=== PATIENT | female | born 1965 | race African-American/Black ===

== ENCOUNTER → 2020-07-19 02:42 | Outpatient (CLI) | payer BC, SELFPAY ==
[2020-07-19 20:23] LABS: SARS-CoV-2 RNA PCR Negative
== END ==
PROVIDERS: Visit Provider Orthopaedic Surgery
DX: Z01.812 Encounter for preprocedural laboratory examination (principal); Z20.822 Contact with and (suspected) exposure to COVID-19
CPT/HCPCS: C9803; U0003; U0005

== ENCOUNTER 2020-07-23 01:35 | Day surgery (SDC) | payer BC, SELFPAY ==
[2020-07-15 13:18] VITALS: BMI 37.7
--- NOTE | 2020-07-21 14:39 | PM.IMHP ---
H&P: HPI History of Present Illness Date/Time: 07/21/20 14:39 the patient is a 55-year-old female who presents with left knee pain. The patient has a chronic ongoing history of pain localized left knee particularly medially. The patient reports locking and catching medially any twisting or turning squatting kneeling causes significant medial-sided knee pain. Patient has had multiple previous twisting injuries by her report and now her pain is persistent nature. The patient was treated with cortisone therapy and anti-inflammatories without significant relief. An MRI scan was then performed. An MRI scan shows cruciate and collateral ligaments to be intact. There is a tear of the inner margin of the medial meniscus posterior horn the lateral meniscus is intact. 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 At this point the patient has failed conservative measures. Patient is noted to be 55 not really interested in a total knee arthroplasty at this time. Her main complaints are mechanical symptoms and she is aware that knee arthroscopy could improve her symptoms however may not give her full relief from her knee pain from knee arthroscopy. Patient would like to try a more conservative approach the knee arthroplasty at this time due to her young age. She has discussed risks benefits limitations and alternatives to knee arthroscopy in detail with Dr. Hsu and she would like to proceed. Chief Complaint: Left knee pain, medial meniscal tear Review of Systems Review of Systems: All systems reviewed & are unremarkable except as noted in HPI and below [facility] Social History Social History Smoking packs per day: 0.5 Smoking cigarettes per day: 10.0 Years smoked: 20 Smoking pack-years: 10.00 Smoking status: Former smoker Smoking end date: 04/25/04 Alcohol intake: never Substance use: never Substance use type: does not use Spiritual care concerns: No Meds Home Medications and Allergies Home Medications Medication Instructions Recorded Confirmed Type albuterol 90 mcg INHALATION Q6H PRN 07/15/20 07/15/20 History ergocalciferol (vitamin D2) 1,250 mcg PO WEEKLY 07/15/20 07/15/20 History hydrocodone-ibuprofen 1 tablet PO Q4H PRN 07/15/20 07/15/20 History hydroxyurea 500 mg PO DAILY 07/15/20 07/15/20 History pantoprazole 40 mg PO DAILY 07/15/20 07/15/20 History tobramycin-dexamethasone 1 drp EACH EYE DAILY 07/15/20 07/15/20 History Allergies Allergy/AdvReac Type Severity Reaction Status Date / Time No Known Allergies Allergy Verified 07/15/20 13:15 Exam Narrative: Exam Narrative: The patient is noted be a well-developed well-nourished female no acute distress. The patient is alert and oriented x3. Normal mood and affect. Hearing and vision intact. HEENT exam within normal limits. Heart regular rate rhythm. Lungs clear auscultation. Abdomen benign. Extremities showed the patient's left knee to be painful with manipulation range of motion. She has tenderness on the medial joint line with a positive Leroy exam negative Grace knee joint is otherwise stable strength is 5 5. she does have mild crepitation through the arc of motion mild to moderate effusion is noted. Hips move well with negative Stinchfield negative Radha. Neurovascularly she is intact. Skin is intact. Central nervous system exam within normal limits. Assessment and Plan Additional Plan By MRI history and exam the patient is noted to have a medial meniscal tear left knee with above associated findings. The patient is aware she has pre-existing osteoarthritis and may not get full relief for her knee pain from knee arthrosco
--- NOTE | 2020-07-22 15:41 | WPDANESEPPF ---
Anes - Initial Pre Proc Eval Procedure: Operation Date: 07/23/20 09:30 Proposed Procedures p Left Knee Arthroscopy, Partial Medial Meniscectomy, Proceed As Indicated - Nito Hsu MD Date/Time: 07/22/20 15:41 Surgeon: Nito Hsu MD Pre Op Diagnosis: Medial Meniscus Tear Left Knee Patient Data Age: 55 Gender: F Height: 1.6 m Weight: 96.6 kg Allergies Allergy/AdvReac Type Severity Reaction Status Date / Time No Known Allergies Allergy Verified 07/23/20 07:43 Home Medications Medication Instructions Recorded Confirmed Type albuterol 90 mcg INHALATION Q6H PRN 07/15/20 07/15/20 History ergocalciferol (vitamin D2) 1,250 mcg PO WEEKLY 07/15/20 07/23/20 History hydrocodone-ibuprofen 1 tablet PO Q4H PRN 07/15/20 07/23/20 History hydroxyurea 500 mg PO DAILY 07/15/20 07/23/20 History pantoprazole 40 mg PO DAILY 07/15/20 07/23/20 History tobramycin-dexamethasone 1 drp EACH EYE DAILY 07/15/20 07/15/20 History Patient hx anesthesia problems: none Family hx anesthesia problems: none PMFSH Past Medical History Medical History (Updated 07/23/20 @ 08:41 by Lukasz Newsome MD) Arthritis Chronic GERD Chronic narcotic use COPD (chronic obstructive pulmonary disease) Emphysema of lung Obesity Sickle cell anemia Thalassemia 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 crisis Social History Social History Smoking packs per day: 0.5 Smoking cigarettes per day: 10.0 Years smoked: 20 Smoking pack-years: 10.00 Smoking status: Former smoker Smoking end date: 04/25/04 Alcohol intake: never Substance use: never Substance use type: does not use Living arrangements: with family Spiritual care concerns: No Anes - Eval Final PreProcedure Day of Procedure 07/22/20 15:41 Patient weight: obese Heart: regular rate and rhythm Lungs: clear to auscultation and normal air movement Airway: Mallampati scale class II Neurological: alert and oriented Last oral intake: >/= 8 hours ASA classification: III Emergent: no Anesthetic plan: proceed Anesthesia type and monitoring: general LMA Informed Consent: The patient's anesthetic plan and its attendant risks and benefits were discussed with the patient/family/POA. Questions were solicited and answers provided to the satisfaction of the patient/family/POA.
[2020-07-23] VITALS (9 sets, daily range): BP systolic 93–112; BP diastolic 58–73; PULSE 54–72; RESP 14–16; TEMP 36.8; O2SAT 92–100
--- NOTE | 2020-07-23 07:17 | WPDHPUPDATE1 ---
History and Physical Update Update Date/Time: 07/23/20 07:17 History and Physical has been reviewed, including an updated exam of the patient. There are NO changes in the patient's condition. Risks, benefits, and alternatives have been discussed and questions answered. Patient agrees to proceed with procedure.
[2020-07-23] MEDS: ACETAMINOPHEN 500 MG TABLET 1000 MG PO (08:08)
[2020-07-23] MEDS: LACTATED RINGERS 1,000 ML 30 ML IV CONT ×2 (08:59→10:08)
[2020-07-23] MEDS: KETOROLAC 15 MG/ML VIAL (*BKC) IV PUSH (09:01)
--- NOTE | 2020-07-23 09:14 | WPDHPUPDATE1 ---
History and Physical Update Update Date/Time: 07/23/20 09:14 History and Physical has been reviewed, including an updated exam of the patient. There are NO changes in the patient's condition. Risks, benefits, and alternatives have been discussed and questions answered. Patient agrees to proceed with procedure.
[2020-07-23] MEDS: ceFAZolin 2 GM/D5W 50 ML 2 GM/50 ML BAG IVPB (09:19)
[2020-07-23] MEDS: LIDO 1%/EPINEPHRINE 1:100,000 50 ML VIAL 10 ML INFILTRATE (09:55)
--- NOTE | 2020-07-23 09:58 | PM.PROC ---
Procedure Note - Detailed Date of procedure: 07/23/20 Pre-op diagnosis: Medial Meniscus Tear Left Knee Post-op diagnosis: same Procedure performed: [Left] knee arthroscopy with partial meniscetomy Description of procedure: Patient brought to the operating room and anesthetic was administered. The knee was steriley prepped and drapped in the usual manner. Standard portals were used. Superior medial portal was used for the outflow cannula, inferior lateral portal was used for the scope, inferior medial portal was used for the instruments. Arthroscopy was performed, the patellar femoral joint degenerative changes. The medial compartment showed a complex tear. The lateral compartment showed fraying. The ACL was intact. Using baskets and maribell the meniscal tear was trimmed back to a stable base so the nothing further could be pulled into the joint. Any loose or delaminated fragments were gently trimmed to a stable base. At this point the instruments were withdrawn, sutures placed and patient left the operating room in satisfactory condition. Patient noted to have sickle cell anemia bony infarcts degeneration we talked about that before surgery she has mechanical symptoms were going to try to however she does have degenerative changes hands or the Reveles the postsurgery some point where the tear was notable for the fact that she did have some wear of the cartilage on the bony articular surfaces the tear was removed it was a delaminated chondromalacia trimmed Anesthesia: GETA Surgeon: Nito Hsu MD Estimated blood loss (mL): 20 Drains: No Packing: No Pathology: none sent Complications: No immediate complications Condition: stable Disposition: PACU
[2020-07-23] MEDS: HYDROmorphone HCL INJ (*CRX) 1 MG/ML SYR 0.25 MG IV PUSH ×8 (10:29→11:04)
[2020-07-23] MEDS: oxyCODONE HCL (*CRX) 5 MG TAB IR PO (11:27)
== END 2020-07-23 12:34 | disposition home or self-care (01) ==
PROVIDERS: PCP Internal Medicine; Visit Provider Orthopaedic Surgery
PROC: (CPT 29870; principal; 2020-07-23 09:30)
DX: S83.232A Complex tear of medial meniscus, current injury, left knee, initial encounter (principal); X50.0XXA Overexertion from strenuous movement or load, initial encounter; J44.9 Chronic obstructive pulmonary disease, unspecified; K21.9 Gastro-esophageal reflux disease without esophagitis; D57.1 Sickle-cell disease without crisis; D57.40 Sickle-cell thalassemia without crisis; Z79.891 Long term (current) use of opiate analgesic; Z79.51 Long term (current) use of inhaled steroids; E66.9 Obesity, unspecified; Z68.37 Body mass index [BMI] 37.0-37.9, adult; Z87.891 Personal history of nicotine dependence
CPT/HCPCS: 29881; A9270; J0690; J1100; J1170; J1885; J2250; J2405; J2704; J3010; J7120